=== PATIENT | female | born 1995 | race African-American/Black ===

== ENCOUNTER 2019-09-13 15:15 | Emergency (ER) | payer OTHER ==
[2019-09-13] MEDS ORDERED: NS 0.9% 1000 ML** 1,000 ML IV ONE (16:00)
--- NOTE | 2019-09-13 16:08 | ED ---
Abdominal Pain/Female - HPI Summary HPI Summary: Pt is a 24 y/o F presenting to the ED with a chief complaint of abd pain. Pt states that over the past year she has intermittently had abd pain in her RLQ/ suprapubic region that shes consistently ignored. She thought the pain would go away eventually but it has persisted. Today, it is accompanied by nausea. no vomiting. No diarrhea. no blood, black stools. She notes her menstrual cycle just started, and she took two Advil earlier this morning. She denies possibility of as she has not had sex since January of 2019. She notes that when she would have sex, it would sometimes be painful. She denies vaginal discharge, itching, burning with urination, malodorous discharge, malodorous urine, dysuria, or trauma to the abdominal area. No back pain. no trauma. Pt states she previously had an ultrasound that showed she had a cyst (?ovarian cyst) She went to [facility] who recommended she come here as they could not do images there. Patients medications reviewed this visit. - History of Current Complaint Chief Complaint: EDAbdPain Stated Complaint: ABDOMINAL PAIN PER PT Time Seen by Provider: 09/13/19 15:26 Hx Obtained From: Patient Onset/Duration: Gradual Onset, Lasting Hours, Still Present Timing: Hours Severity Initially: Moderate Severity Currently: Moderate Pain Intensity: 7 Pain Scale Used: 0-10 Numeric Location: Suprapubic Radiates: Yes Radiates to: RLQ Character: Cramping Aggravating Factor(s): Nothing Alleviating Factor(s): Nothing Associated Signs and Symptoms: Positive: Nausea. Negative: Urinary Symptoms, Vaginal Discharge Allergies/Adverse Reactions: Allergies Allergy/AdvReac Type Severity Reaction Status Date / Time No Known Allergies Allergy Verified 09/13/19 15:22 PMH/Surg Hx/FS Hx/Imm Hx Previously Healthy: Yes Endocrine/Hematology History: Denies: Hx Diabetes Cardiovascular History: Denies: Hx Hypertension - Surgical History Surgical History: None Infectious Disease History: No Infectious Disease History: Denies: Traveled Outside the [place] in Last 30 Days - Family History Known Family History: Positive: Non-Contributory Negative: Diabetes - Social History Occupation: Student Alcohol Use: Occasionally Hx Substance Use: No Substance Use Type: Reports: None Hx Tobacco Use: No Smoking Status (MU): Never Smoked Tobacco Review of Systems Constitutional: Negative Positive: Abdominal Pain, Nausea Negative: burning, dysuria, discharge Neurological: Other - lightheadedness Positive: Weakness All Other Systems Reviewed And Are Negative: Yes Physical Exam - Summary Physical Exam Summary: Vital Signs Reviewed: Yes A+Ox3, no distress Eyes: Conjunctiva Clear, ALAN. EOM intact and full ENT: Hearing grossly normal TM x 2 clear, mmoist, uvula midline, no exudate, no erythema Neck: Positive: Supple Respiratory: Positive: No respiratory distress, No accessory muscle use + CTA throughout no w/r Cardiovascular: RRR nl s1, s2 no m/r CBT <2 sec abd soft + BS nd, no CVA, very mild right lower abd pain - in pelvis, no rebound no guarding, no distension Musculoskeletal Exam: CALDERON x 4 without difficulty Strength Intact, ROM Intact Neurological: Positive: Alert, + sensation throughout Psychological: Positive: Normal Response To examiner Skin: Positive: no rash, no ecchymosis Triage Information Reviewed: Yes Vital Signs On Initial Exam: Initial Vitals Temp Pulse Resp BP Pulse Ox 97.3 F 81 15 121/65 99 09/13/19 15:21 09/13/19 15:21 09/13/19 15:21 09/13/19 15:21 09/13/19 15:21 Vital Signs Reviewed: Yes Procedures - Sedation Patient Received Moderate/Deep Sedation with Procedure: No Diagnostics - Vital Signs Vital Signs Temp Pulse Resp BP Pulse Ox 09/13/19 15:21 97.3 F 81 15 121/65 99 - Laboratory Result Diagrams: 09/13/19 16:20 09/13/19 16:20 Lab Statement: Any lab studies that have been ordered have been reviewed, and results considered in the medical decision making process. - Ultrasound Pelvic US Ultrasound Interpretation Completed By: Radiologist Summary of Ultrasound Findings: THICKENED ENDOMETRIUM. NO SONOGRAPHIC FEATURES OF TORSION. PLEASE NOTE THAT PARTIAL OR INTERMITTENT TORSION MAY BE SONOGRAPHICALLY NORMAL. ED physician has reviewed this report. Re-Evaluation - Re-Evaluation 1st re-eval Re-Evaluation Time: 17:10 Change: Improved Comment: Pt states she is feeling better and that she would like to use the bathroom and eat something. If her labs are normal and she is able to eat, she can be discharged home. I discussed with patient very low suspicion for acute appendicitis. Did discuss with patient return precautions. Patient's examination and agreement with plan. Patient looks like to go home after she eats. 2nd re-eval Re-Evaluation Time: 18:00 Comment: Pt has some nausea and hunger. Patient given crackers and juice and some Zofran. We'll reassess. Patient's feeling better with the discharge as stated. Strict return precautions discussed. Patient states understanding and agreement with plan Abdominal Pain Fem Course/Dx - Course Course Of Treatment: Patient presents to urgent care for evaluation of lower abdominal pain patient's sutures had intermittent over about a year. Patient states it comes and goes and does not seem to be related to food or activity. Patient states it is sometimes worse with intercourse. Patient states she did have an ultrasound once is that she had a cyst but she is not sure the cyst was. Patient started her menses yesterday. Worse today. Patient took Motrin this morning with some improvement. Patient states she has some mild nausea today. No vomiting. On exam vital signs are stable. Patient afebrile. Patient with very mild right lower quadrant pain. Pain is deep in the pelvis. Will check labs urine and pelvic ultrasound. Patient has not been sexually active in approximately 6 months. Patient with a history of STDs no vaginal discharge and odor. 2 pelvic exam at this time unless her something concerning the ultrasound. I have a very low suspicion for appendicitis based on today's exam and presentation. - Diagnoses Provider Diagnoses: Abdominal pain Discharge ED - Sign-Out/Discharge Documenting (check all that apply): Patient Departure - Discharge Plan Condition: Stable Disposition: HOME Prescriptions: Ondansetron ODT TAB* [Zofran 4 MG Odt TAB*] 4 mg PO Q4H PRN #10 tab.odt PRN Reason: Nausea Referrals: [facility] [Outside] [facility] [Primary Care Provider] - Additional Instructions: -Okay to alternate ibuprofen (Advil, Motrin) 600mg and Tylenol (acetaminophen) 1000mg every 3 hours for pain or fever. Take with food. Do NOT take for more than 4-5 days. - For the first 6 hours, eat and drink clears (water, suzanna doreen, soup broth, jello, popsicles, Gatorade). If you tolerate this okay, add bland foods such as dry toast, scrambled eggs, crackers. Wait until you are feeling better for 24 hours before eating spicy food, acidic food, tomato based food, fried food. - Okay to take medication as prescribed for nausea As discussed, the doctor thinks it is okay for you to go home. Monitor your symptoms closely - if you develop fevers, increased pain, vomiting, or any other concerns it strongly recommended you return to the emergency department for futher testing. [facility] Contact the physician referral center to schedule a follow-up appointment with a building drafter - Billing Disposition and Condition Condition: STABLE Disposition: Home - Attestation Statements Document Initiated by Scribe: Yes Documenting Scribe: Megan Swanson Provider For Whom [facility] is Documenting (Include Credential): Krista Bui MD. Scribe Attestation: Megan Burgos, scribed for Krista Bui MD. on 09/14/19 at 0709. Scribe Documentation Reviewed: Yes Provider Attestation: The documentation as recorded by the scribeMegan accurately reflects the service I personally performed and the decisions made by me, Krista Bui MD. Status of Scribe Document: Viewed
[2019-09-13] MEDS ORDERED: Ketorolac INJ* 30 MG/ML 1 ML VIAL IV ONE (16:16)
[2019-09-13 16:28] LABS: ABS Lymphocytes 1.2 10^3/ul (1.0-4.8); ABS Monocytes 0.6 10^3/ul (0-0.8); ABS Neutrophils 8.7 10^3/ul (1.5-7.7); Eosinophil % 0.1 %; Hematocrit 40 % (35-47); Hemoglobin 14.1 g/dL (12.0-16.0); Lymphocyte % 11.2 %; Mean Corpuscular HGB Conc 35 g/dL (31-36); Mean Corpuscular Hemoglobin 31 pg (27-31); Mean Corpuscular Volume 88 fL (80-97); Mean Platelet Volume 7.9 fL (7.4-10.4); Nucleated Red Blood Cells % 0.1; Platelet Count 309 10^3/uL (150-450); Red Blood Count 4.55 10^6 /uL (3.70-4.87); Red Cell Distribution Width 13 % (10-15); White Blood Count 10.5 10^3/uL (3.5-10.8)
[2019-09-13 16:42] LABS: Urine Appearance Cloudy; Urine Bacteria Absent (Absent); Urine Bilirubin Negative (Negative); Urine Blood 3+ (Negative); Urine Color Yellow; Urine Glucose Negative (Negative); Urine Ketones Negative (Negative); Urine Nitrite Negative (Negative); Urine Protein 1+(30 mg/dL) (Negative); Urine Red Blood Cell 3+(>10/hpf) (Absent); Urine Specific Gravity 1.024 (1.010-1.030); Urine Squamous Epithelial Cell Present (Absent); Urine Urobilinogen Negative (Negative); Urine White Blood Cell 2+(11-20/hpf) (Absent)
[2019-09-13 16:46] LABS: ALT 16 U/L (7-52); Albumin 4.3 g/dL (3.2-5.2); Albumin/Globulin Ratio 1.2 (1-3); Alkaline Phosphatase 65 U/L (34-104); BUN/Creatinine Ratio 15.5 (8-20); Blood Urea Nitrogen 11 mg/dL (6-24); CO2 Carbon Dioxide 26 mmol/L (22-32); Calcium 9.7 mg/dL (8.6-10.3); Chloride 105 mmol/L (101-111); EGFR African American 124.6 (>60); EGFR Non-African American 102.9 (>60); Globulin 3.5 g/dL (2-4); Glucose 78 mg/dL (70-100); Sodium 137 mmol/L (135-145); Total Protein 7.8 g/dL (6.4-8.9)
[2019-09-13 16:53] LABS: HCG Pregnancy < 0.60 mIU/mL
[2019-09-13 17:35] LABS: AST 21 U/L (13-39); Anion Gap 6 mmol/L (2-11); Potassium 4.1 mmol/L (3.5-5.0)
[2019-09-13] MEDS ORDERED: Ibuprofen TAB* 600 MG PO ONE (17:40)
[2019-09-13 17:46] VITALS: BP 104/63
[2019-09-13] MEDS ORDERED: Ondansetron ODT TAB* 4 MG SL ONE (17:51)
== END 2019-09-13 18:04 | disposition home or self-care (01) ==
LOC: ED 15:15
DX: R10.9 Unspecified abdominal pain (principal); R11.0 Nausea; R42 Dizziness and giddiness; R53.1 Weakness
CPT/HCPCS: 36415; 76830; 80053; 81003; 81015; 83690; 84702; 85025; 87086; 96361; 96374; 99282; A9270-GY; J1885